=== PATIENT | male | born 1930 | race Caucasian/White ===

== ENCOUNTER 2018-02-15 15:44 | Observation (INO) | payer MEDICARE, OTHER ==
[~2018-02-15] VITALS: Ht 172.7 cm; Wt 83.3 kg
[2018-02-15] MEDS ORDERED: ASPIRIN 81 MG TABLET CHEW PO ONE (16:00)
[2018-02-15] MEDS ORDERED: ASPIRIN 81 MG TABLET CHEW ONE (16:06)
[2018-02-15 16:17] LABS: BASOPHILS # (AUTO) 0.03 x10^3/uL (0-0.1); BASOPHILS % (AUTO) 1 % (0-1); EOSINOPHILS # (AUTO) 0.08 x10^3/uL (0-0.4); EOSINOPHILS % (AUTO) 2 % (1-7); LYMPHOCYTES # (AUTO) 1.39 x10^3/uL (1-3.4); LYMPHOCYTES % (AUTO) 30 % (22-44); MD NO; MEAN CORPUSCULAR HEMOGLOBIN 33.4 pg (27.5-34.5); MEAN CORPUSCULAR HGB CONC 34.2 g/dL (33.2-36.2); MEAN CORPUSCULAR VOLUME 97.7 fL (81-97); MEAN PLATELET VOLUME 7.7 fL (7.4-10.4); MONOCYTES # (AUTO) 0.44 x10^3/uL (0.2-0.8); MONOCYTES % (AUTO) 9 % (2-9); NEUTROPHILS # (AUTO) 2.72 x10^3/uL (1.8-6.8); NEUTROPHILS % (AUTO) 58 % (42-75); PLATELET COUNT 140 x10^3/uL (130-400); RED BLOOD COUNT 4.03 x10^6/uL (4.38-5.82); RED CELL DISTRIBUTION WIDTH 13.1 % (9.4-14.8)
[2018-02-15 16:24] LABS: INTERNATIONAL NORMALIZED RATIO 1.07 (0.93-1.1); PROTHROMBIN TIME 11.1 Seconds (9.6-11.5)
[2018-02-15 16:26] LABS: ALANINE AMINOTRANSFERASE 31 U/L (12-78); ALBUMIN 3.5 g/dL (3.4-5.0); ANION GAP 8 mmol/L (5-15); CALCIUM 8.9 mg/dL (8.5-10.1); CHLORIDE 112 mmol/L (98-107); CREATININE 1.31 mg/dL (0.7-1.3)
[2018-02-15 16:30] LABS: ALKALINE PHOSPHATASE 43 U/L (45-117); BILIRUBIN,TOTAL 1.2 mg/dL (0.2-1.0); TOTAL PROTEIN 7.1 g/dL (6.4-8.2); TROPONIN I 0.067 ng/mL (0.000-0.045)
[2018-02-15] MEDS ORDERED: RANO500T2 PO (17:42)
[2018-02-15] MEDS ORDERED: OMEP-110 PO (17:42)
[2018-02-15] MEDS ORDERED: ISOS30TA8 PO (17:42)
[2018-02-15] MEDS ORDERED: CLOP75TA52 PO (17:42)
[2018-02-15] MEDS ORDERED: METO200T47 PO (17:42)
[2018-02-15] MEDS ORDERED: ASPI-496 PO (17:42)
[2018-02-15] MEDS ORDERED: SIMV40TA3 PO (17:42)
[2018-02-15] MEDS ORDERED: OMNIPAQUE 350 MG/ML, 100ML BOTTLE ONE (18:02)
[2018-02-15] MEDS ORDERED: morphine SULFATE 10 MG/ML, 1ML IVPush PRN (19:00)
[2018-02-15] MEDS ORDERED: ONDANSETRON ODT 4 MG PO PRN (19:00)
[2018-02-15] MEDS ORDERED: ONDANSETRON 2MG/ML, 2ML IVPush PRN (19:00)
[2018-02-15] MEDS ORDERED: LABETALOL 5MG/ML, 20ML IVPush PRN (19:00)
[2018-02-15 19:36] LABS: FREE T4 (FREE THYROXINE) 0.96 ng/dL (0.76-1.46); TROPONIN I 0.067 ng/mL (0.000-0.045)
[2018-02-15 19:50] VITALS: BP 133/72
[2018-02-15 20:12] VITALS: BP 133/72
[2018-02-15] MEDS: SODIUM CHLORIDE 0.9% 1,000 ML IV SCH (20:47)
[2018-02-15] MEDS: HEPARIN 5,000 UNITS/ML, 1ML SQ SCH (20:49)
[2018-02-15] MEDS: FAMOTIDINE 20 MG/2 ML IVPush SCH (20:49)
[2018-02-15] MEDS: ISOSORBIDE MONONITRATE ER 30 MG TABLET PO SCH (20:50)
[2018-02-15] MEDS: RANOLAZINE 500 MG TAB.ER.12H PO SCH (20:50)
[2018-02-15] MEDS ORDERED: SIMVASTATIN 40 MG TABLET PO SCH (21:00)
[2018-02-16 01:18] LABS: TROPONIN I 0.061 ng/mL (0.000-0.045)
[2018-02-16 01:28] VITALS: BP 114/63
[2018-02-16] MEDS: HEPARIN 5,000 UNITS/ML, 1ML SQ SCH ×2 (05:31→11:00)
[2018-02-16 06:02] LABS: BASOPHILS # (AUTO) 0.03 x10^3/uL (0-0.1); BASOPHILS % (AUTO) 1 % (0-1); EOSINOPHILS # (AUTO) 0.16 x10^3/uL (0-0.4); EOSINOPHILS % (AUTO) 4 % (1-7); LYMPHOCYTES # (AUTO) 1.57 x10^3/uL (1-3.4); LYMPHOCYTES % (AUTO) 38 % (22-44); MD NO; MEAN CORPUSCULAR HEMOGLOBIN 33.7 pg (27.5-34.5); MEAN CORPUSCULAR HGB CONC 34.3 g/dL (33.2-36.2); MEAN CORPUSCULAR VOLUME 98.2 fL (81-97); MEAN PLATELET VOLUME 7.4 fL (7.4-10.4); MONOCYTES # (AUTO) 0.38 x10^3/uL (0.2-0.8); MONOCYTES % (AUTO) 9 % (2-9); NEUTROPHILS # (AUTO) 1.98 x10^3/uL (1.8-6.8); NEUTROPHILS % (AUTO) 48 % (42-75); PLATELET COUNT 124 x10^3/uL (130-400); RED BLOOD COUNT 3.82 x10^6/uL (4.38-5.82); RED CELL DISTRIBUTION WIDTH 13.1 % (9.4-14.8)
[2018-02-16 06:10] LABS: CHLORIDE 112 mmol/L (98-107)
[2018-02-16 06:25] LABS: ALANINE AMINOTRANSFERASE 25 U/L (12-78); ALBUMIN 3.1 g/dL (3.4-5.0); ALKALINE PHOSPHATASE 38 U/L (45-117); ANION GAP 5 mmol/L (5-15); CALCIUM 8.1 mg/dL (8.5-10.1); CREATININE 1.37 mg/dL (0.7-1.3); TOTAL PROTEIN 6.2 g/dL (6.4-8.2)
[2018-02-16 08:00] VITALS: BP 124/67
[2018-02-16] MEDS: SODIUM CHLORIDE 0.9% 1,000 ML IV SCH (08:00)
[2018-02-16] MEDS: ISOSORBIDE MONONITRATE ER 30 MG TABLET PO SCH (08:01)
[2018-02-16] MEDS: RANOLAZINE 500 MG TAB.ER.12H PO SCH (08:03)
[2018-02-16] MEDS ORDERED: CLOPIDOGREL 75 MG TABLET PO SCH (09:00)
[2018-02-16] MEDS ORDERED: OMEPRAZOLE 20 MG CAPSULE.DR PO SCH (09:00)
[2018-02-16] MEDS ORDERED: SENNA/DOCUSATE TABLET PO SCH (09:00)
[2018-02-16] MEDS: FAMOTIDINE 20 MG/2 ML IVPush SCH (09:00)
[2018-02-16] MEDS ORDERED: TEMPLATE NON-FORMULARY MED. (Aspirin** (Aspir 81**) 81 MG) PO SCH (09:00)
[2018-02-16] MEDS ORDERED: REGADENOSON 0.4 MG/5 ML SYRINGE ONE (09:54)
[2018-02-17] MEDS ORDERED: METOPROLOL SUCCINATE 25 MG TAB.ER.24H PO SCH (09:00)
== END 2018-02-16 14:33 | disposition home or self-care (01) ==
LOC: ED 16:44 → INTOOBSV 16:45 → EDIP 16:45 → ED 16:59 → 5SO 18:32 → DCLOUNGE 02-16 14:17
PROVIDERS: ADMIT Hospitalist; ATTEND Hospitalist
DX: R07.89 Other chest pain (principal); E78.5 Hyperlipidemia, unspecified; I25.10 Atherosclerotic heart disease of native coronary artery without angina pectoris; G51.0 Bell's palsy; I48.91 Unspecified atrial fibrillation; K80.20 Calculus of gallbladder without cholecystitis without obstruction; D64.9 Anemia, unspecified; D68.69 Other thrombophilia; D69.6 Thrombocytopenia, unspecified; E78.00 Pure hypercholesterolemia, unspecified; I11.0 Hypertensive heart disease with heart failure; I50.9 Heart failure, unspecified; N20.0 Calculus of kidney; Z79.82 Long term (current) use of aspirin; Z80.1 Family history of malignant neoplasm of trachea, bronchus and lung; Z82.49 Family history of ischemic heart disease and other diseases of the circulatory system; Z87.891 Personal history of nicotine dependence; Z95.1 Presence of aortocoronary bypass graft
CPT/HCPCS: 36415; 71045; 71275; 78452; 80053; 82436; 82570; 83735; 83880; 84100; 84133; 84300; 84439; 84443; 84484; 85025; 85379; 85610; 85730; 93005; 93017; 96361; 96372; 96374; 99285; A9502; C9898; G0378; J1644; J2785; J7030; Q9967; S0028